=== PATIENT | female | born 1975 | race Hispanic/Latino ===

== ENCOUNTER 2022-08-21 09:32 | Emergency (ER) | payer OTHER ==
[~2022-08-21] VITALS: Ht 154.9 cm; Wt 70.3 kg
[2022-08-21] MEDS ORDERED: PREDNISONE 20 MG TAB PO ONE (11:15)
[2022-08-21] MEDS ORDERED: ALBUTEROL/IPRATROPIUM 3 ML NEB NEB ONE (11:15)
[2022-08-21] MEDS ORDERED: PREDNISONE 20 MG TAB ONE (11:29)
[2022-08-21] MEDS ORDERED: ALBUTEROL/IPRATROPIUM 3 ML NEB ONE (11:29)
[2022-08-21] MEDS ORDERED: PROVENTIL HFA6.7 GM INH ×2 (11:46→12:03)
[2022-08-21] MEDS ORDERED: PREDNISONE20 MG PO ×2 (11:49→12:03)
== END 2022-08-21 12:04 | disposition home or self-care (01) ==
LOC: FSED 09:42
DX: R05.9 Cough, unspecified (principal); J98.01 Acute bronchospasm; J06.9 Acute upper respiratory infection, unspecified
CPT/HCPCS: 71046; 83518; 87400; 99283; J7512